=== PATIENT | male | born 1980 | race Caucasian/White ===

== ENCOUNTER → 2016-08-03 | Outpatient (CLI) | payer BC ==
[~2016-08-03] MED LIST: ACETTAB19 PO; GLIM4TAB PO; LISI-725 PO; METF-384 PO; PRAV20TA PO
[2016-08-03 10:34] LABS: BLOOD UREA NITROGEN 11 mg/dl (7-18); BUN/CREATININE RATIO 15.4 (10-20); CARBON DIOXIDE 30 mmol/L (21-32); CHLORIDE 105 mmol/L (98-107); CREATININE 0.69 mg/dl (0.60-1.40); GLUCOSE 103 mg/dl (70-99); POTASSIUM 3.7 mmol/L (3.5-5.1); SODIUM 143 mmol/L (136-145)
[2016-08-03 10:37] LABS: ESTIMATED AVERAGE GLUCOSE 143 mg/dl; HA1C FLAG Normal (Normal)
[2016-08-03 10:45] LABS: CHOLESTEROL 114 mg/dl (0-200); CHOLESTEROL/HDL RATIO 1.8; HDL CHOLESTEROL 65 mg/dl; LDL CHOLESTEROL CALCULATED 30 mg/dl; RATIO 4.1 mcg/mg (0-30.0); TRIGLYCERIDES 95 mg/dl (0-150); VERY LOW DENSITY LIPOPROT CALC 19 mg/dl
== END | disposition home or self-care (01) ==
LOC: C.LAB1850 08:54
PROVIDERS: ATTEND Nurse Practitioner Family
DX: E11.9 Type 2 diabetes mellitus without complications (principal)

== ENCOUNTER → 2016-08-30 | Outpatient (CLI) | payer BC ==
[~2016-08-30] MED LIST changes: +MAGNEVIST IV PRN
--- NOTE | 2016-08-30 14:43 | DIAGNOSTIC IMAGING REPORT ---
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 FINDINGS: Sagittal T1, axial FIESTA, dynamic coronal T1, and post gadolinium sagittal T1-weighted images the pituitary were acquired. The pituitary gland is of normal size. The optic chiasm appears normal. The infundibulum is in the midline. The pituitary gland enhances in a uniform fashion. No pituitary masses are visualized. IMPRESSION: Normal MRI of the pituitary Electronically signed by: Melvin Hyman M.D. 08/30/2016 2:42 PM Dictated Date/Time: 08/30/2016 2:39 PM
== END | disposition home or self-care (01) ==
LOC: C.MRIBC 13:37
PROVIDERS: ATTEND Internal Medicine Endocrinology, Diabetes & Metabolism
DX: E31.21 Multiple endocrine neoplasia [MEN] type I (principal)

== ENCOUNTER → 2018-02-17 | Outpatient (CLI) | payer OTHER ==
[~2018-02-17] MED LIST changes: -MAGNEVIST IV PRN
== END | disposition home or self-care (01) ==
LOC: C.MAMM 15:40
PROVIDERS: ATTEND Internal Medicine Endocrinology, Diabetes & Metabolism
DX: E55.9 Vitamin D deficiency, unspecified (principal); E31.21 Multiple endocrine neoplasia [MEN] type I; Z98.84 Bariatric surgery status; E21.3 Hyperparathyroidism, unspecified